=== PATIENT | female | born 1950 | race Hispanic/Latino ===

== ENCOUNTER 2019-02-07 15:29 | Inpatient (IN) | payer OTHER ==
[~2019-02-07] VITALS: Ht 158.8 cm; Wt 95.7 kg
[2019-02-07 16:01] LABS: BASOPHILS % (AUTO) 0.5 % (0.0-5.0); HEMATOCRIT 31.2 % (36-48); MEAN CORPUSCULAR HEMOGLOBIN 28.3 pg (27.0-33.0); MEAN CORPUSCULAR VOLUME 85.9 fL (79-99); MONOCYTES % (AUTO) 7.7 % (3.0-13.0); NEUTROPHILS % (AUTO) 66.8 % (40.0-77.0); PLATELET COUNT (AUTO) 183 K/uL (130-400); RED BLOOD CELL COUNT(AUTO) 3.63 MIL/uL (4.00-5.50); RED CELL DISTRIBUTION WIDTH 13.9 % (11.0-15.5); WHITE BLOOD COUNT (AUTO) 4.7 K/uL (4.8-10.8)
[2019-02-07 16:13] LABS: INR 0.91 (0.85-1.15); PARTIAL THROMBOPLASTIN TIME 25.2 SEC (26.3-35.5); PROTHROMBIN TIME 9.6 SEC (9.6-11.6)
[2019-02-07 16:14] LABS: CREATININE 2.6 mg/dL (0.5-1.5); POTASSIUM 4.6 mmol/L (3.5-5.1)
[2019-02-07 16:26] LABS: ALBUMIN 2.4 g/dL (3.5-5.0); BILIRUBIN,TOTAL 0.2 mg/dL (0.2-1.0); TOTAL PROTEIN, SERUM 5.9 g/dL (6.0-8.3)
[2019-02-07] MEDS ORDERED: LABETALOL 20 MG/4 ML DISP.SYRIN IV ONE (16:56)
[2019-02-07] MEDS ORDERED: ASPIRIN 325 MG TABLET ONE (18:13)
[2019-02-07] MEDS ORDERED: SODIUM CHLORIDE 0.9% 1000ML 1,000 ML IV SCH (19:07)
[2019-02-07] MEDS ORDERED: LACTULOSE 20 GM/30 ML UDCUP PO PRN (19:15)
[2019-02-07] MEDS ORDERED: ACETAMINOPHEN 325 MG TAB PO PRN (19:15)
[2019-02-07] MEDS ORDERED: LABETALOL 20 MG/4 ML DISP.SYRIN IV PRN (19:15)
[2019-02-07 19:44] LABS: HEMOGLOBIN A1C 6.1 % (4.0-6.0)
[2019-02-07 19:56] LABS: BILIRUBIN,DIRECT 0.1 mg/dL (0.0-0.3)
[2019-02-07] MEDS ORDERED: HYDRALAZINE HCL 20 MG/ML VIAL ONE ×2 (20:17→22:33)
[2019-02-07] MEDS: INSULIN HUMULIN R 100 UNIT/ML 3ML SQ SCH (21:00)
[2019-02-07] MEDS: FAMOTIDINE 20MG TAB 20 MG TAB PO SCH (22:02)
[2019-02-07] MEDS: ATORVASTATIN CALCIUM 20 MG TABLET PO SCH (22:02)
[2019-02-07] MEDS: HEPARIN SODIUM 5000UNIT/ML 1ML VIAL SQ SCH (22:03)
[2019-02-07 22:24] VITALS: BP 220/75
[2019-02-07] MEDS: HYDRALAZINE HCL 20 MG/ML VIAL IV SCH (22:30)
--- NOTE | 2019-02-07 22:43 | NUR ---
Blood pressure Patient blood pressure high upon arrival to room 205. BP 220/75 HR 63 SPO2%99. CASUALTY UNDERWRITER notified, new orders of hydralazine received will carry out. supervisor [employer] made aware.
[2019-02-08] VITALS (9 sets, daily range): BP systolic 145–199; BP diastolic 44–74
[2019-02-08 04:55] LABS: BASOPHILS % (AUTO) 0.4 % (0.0-5.0); EOSINOPHILS % (AUTO) 1.3 % (0.0-8.0); HEMATOCRIT 30.5 % (36-48); LYMPHOCYTES % (AUTO) 12.2 % (21.0-51.0); MEAN CORPUSCULAR HEMOGLOBIN 28.9 pg (27.0-33.0); MEAN CORPUSCULAR HGB CONC 33.6 g/dL (32.0-36.0); MEAN CORPUSCULAR VOLUME 86.1 fL (79-99); MONOCYTES % (AUTO) 7.3 % (3.0-13.0); NEUTROPHILS % (AUTO) 78.8 % (40.0-77.0); NUCLEATED RED BLOOD CELLS 0.1 % (0.0-0.19); PLATELET COUNT (AUTO) 154 K/uL (130-400); RED BLOOD CELL COUNT(AUTO) 3.54 MIL/uL (4.00-5.50); RED CELL DISTRIBUTION WIDTH 13.8 % (11.0-15.5); WHITE BLOOD COUNT (AUTO) 6.2 K/uL (4.8-10.8)
[2019-02-08 05:06] LABS: CREATININE 2.3 mg/dL (0.5-1.5); POTASSIUM 5.3 mmol/L (3.5-5.1)
[2019-02-08] MEDS: INSULIN HUMULIN R 100 UNIT/ML 3ML SQ SCH ×4 (07:13→21:00)
[2019-02-08] MEDS: FAMOTIDINE 20MG TAB 20 MG TAB PO SCH ×2 (07:58→20:01)
[2019-02-08] MEDS: HEPARIN SODIUM 5000UNIT/ML 1ML VIAL SQ SCH ×2 (07:58→20:00)
[2019-02-08] MEDS: ASPIRIN 325 MG TABLET PO SCH (07:59)
--- NOTE | 2019-02-08 08:00 | NUR ---
ASSESSMENT PT IS AAOX3 DENIES CP DENIES SOB DENIES NV NO COMPLAINTS. NO VISIBLE SIGNS OF DISTRESS NOTED. SITTING UP IN BED FAMILY IS AT BEDSIDE. NO SLURRED SPEECH NO NEURO DEFICITS NOTED. DENIES HEADACHES. CALL LIGHT WITHIN REACH.
[2019-02-08] MEDS ORDERED: MONT10TA24 PO (08:14)
[2019-02-08] MEDS ORDERED: NAPR250T4 PO (08:14)
[2019-02-08] MEDS ORDERED: NIFE30TA98 PO (08:14)
[2019-02-08] MEDS ORDERED: CARB200T6 PO (08:14)
[2019-02-08] MEDS ORDERED: PRED5TAB PO (08:14)
[2019-02-08] MEDS ORDERED: METF-445 PO (08:14)
[2019-02-08] MEDS ORDERED: [UNRECOGNIZED DRUG - OTHER] PO (08:14)
[2019-02-08] MEDS ORDERED: PRAZ1CAP5 PO (08:14)
[2019-02-08] MEDS ORDERED: FURO40TA7 PO (08:14)
--- NOTE | 2019-02-08 12:30 | NUR ---
DR JACKELINE FREIRE SAW PATIENT, ORDERS RECEIVED
[2019-02-08] MEDS: NIFEDIPINE ER 30 MG TAB PO SCH (12:33)
[2019-02-08] MEDS: PREDNISONE 5 MG TABLET PO SCH (12:33)
[2019-02-08] MEDS: HYDRALAZINE HCL 20 MG/ML VIAL IV PRN (15:09)
--- NOTE | 2019-02-08 15:10 | NUR ---
ELEVATED BP DENIES CP DENIES HEADACHES DENIES NV. PRN HYDRALAZINE GIVEN.
[2019-02-08] MEDS: ACETAMINOPHEN 325 MG TAB PO PRN ×2 (16:31→19:53)
--- NOTE | 2019-02-08 16:57 | NUR ---
D/C PLAN CM spoke to pt and daughter regarding d/c planning. Pt is ind. and lives with daughter in [place]. States she was visiting. Denies having any DME. CM provided community resources packet. Plan to home. CM to f/u. Addendum: 02/08/19 at 1658 by JUSTUS TREVINO CM Amended: Links added.
[2019-02-08] MEDS: MONTELUKAST SODIUM 10 MG TAB PO SCH (20:00)
[2019-02-08] MEDS: ATORVASTATIN CALCIUM 20 MG TABLET PO SCH (20:01)
[2019-02-08] MEDS: HYDRALAZINE HCL 20 MG/ML VIAL IV SCH (22:30)
[2019-02-09] VITALS (8 sets, daily range): BP systolic 141–198; BP diastolic 56–80
[2019-02-09] MEDS: HYDRALAZINE HCL 20 MG/ML VIAL IV PRN ×2 (00:55→12:53)
[2019-02-09] MEDS: ONDANSETRON HCL 4 MG/2 ML VIAL IV PRN ×2 (02:56→09:48)
--- NOTE | 2019-02-09 03:26 | NUR ---
pT. C/O NAUSEA AND VOMITING.PRN ZOFRAN IV GIVEN WILL CONTINUE TO MONITOR PT.
[2019-02-09 04:47] LABS: MEAN CORPUSCULAR HEMOGLOBIN 28.3 pg (27.0-33.0); MEAN CORPUSCULAR HGB CONC 32.9 g/dL (32.0-36.0); NUCLEATED RED BLOOD CELLS 0.1 % (0.0-0.19); PLATELET COUNT (AUTO) 175 K/uL (130-400); RED BLOOD CELL COUNT(AUTO) 3.49 MIL/uL (4.00-5.50); RED CELL DISTRIBUTION WIDTH 14.1 % (11.0-15.5); WHITE BLOOD COUNT (AUTO) 5.2 K/uL (4.8-10.8)
[2019-02-09 04:58] LABS: CREATININE 2.5 mg/dL (0.5-1.5); MAGNESIUM 1.9 mg/dL (1.80-2.40); POTASSIUM 4.6 mmol/L (3.5-5.1)
[2019-02-09 06:23] LABS: BAND NEUTROPHILS % (MANUAL) 2 % (0-2); LYMPHOCYTES % (MANUAL) 13 % (22-44); MONOCYTES % (MANUAL) 6 % (2-9); REACTIVE LYMPHOCYTES 2 % (0-0); SEGMENTED NEUTROPHILS % 77 % (40-70)
[2019-02-09 06:24] LABS: MAN.DIFF COMMENT-IMPRESSION MANUAL DIFFERENTIAL; PLATELET MORPHOLOGY COMMENT ADEQUATE
[2019-02-09] MEDS: INSULIN HUMULIN R 100 UNIT/ML 3ML SQ SCH ×5 (06:34→21:00)
[2019-02-09] MEDS: HEPARIN SODIUM 5000UNIT/ML 1ML VIAL SQ SCH ×2 (06:45→20:39)
--- NOTE | 2019-02-09 07:40 | NUR ---
Bedside report given to incoming NOD using SBAR,no episodes of vomiting remainder of the shift noted.
[2019-02-09] MEDS: ASPIRIN 325 MG TABLET PO SCH (09:00)
[2019-02-09] MEDS ORDERED: ASPIRIN 81 MG EC TAB ONE (09:29)
--- NOTE | 2019-02-09 09:30 | NUR ---
DYSPHAGIA EVAL COMPLETED. -S/S OF ASPIRATION. RECOMMEND REGULAR TEXTURE, THIN LIQUIDS; PILLS WHOLE WITH LIQUIDS. Addendum: 02/09/19 at 1229 by RADHA DUPREE, [facility] Amended: Links added.
[2019-02-09] MEDS: NIFEDIPINE ER 30 MG TAB PO SCH (09:37)
[2019-02-09] MEDS: FAMOTIDINE 20MG TAB 20 MG TAB PO SCH ×2 (09:37→20:35)
[2019-02-09] MEDS: PREDNISONE 5 MG TABLET PO SCH (09:38)
--- NOTE | 2019-02-09 09:45 | NUR ---
COGNITIVE EVAL COMPLETE. COGNITIVE-LINGUISTIC ABILITIES WITHIN FUNCTIONAL LIMITS. Pt AAOX3. Pt REQUESTS WANTS AND NEEDS INDEPENDENTLY. Pt INTELLIGIBLE AT 100% ACCURACY TO THE UNFAMILIAR LISTENER. Pt COMMUNICATING AT CONVERSATIONAL LEVEL WITH NO DEFICITS IDENTIFIED AT THIS TIME. Pt COMPLETED COGNITIVE-LINGUISTIC EVALUATION TARGETING: ORIENTATION, ATTENTION/CONCENTRATION, MEMORY (IMMEDIATE, SHORT-TERM AND LONG-TERM), PROBLEM SOLVING, LOGIC/REASONING/INFERENCE, THOUGHT ORGANIZATION, FUNCTIONAL MATH AND TELLING TIME. Pt ABLE TO COMPLETE TASKS WITH CORRECT AND TIMELY ANSWERS TO ALL SECTIONS. PLEASE NOTE Pt WITH SLIGHT LEFT FACIAL DROOP ATTRIBUTED TO [employer] IN 2008 REPORTED BY Pt. G-CODES SPOKEN LANGUAGE EXPRESSION: [id number] Addendum: 02/09/19 at 1256 by RADHA DUPREE [facility] Amended: Links added.
--- NOTE | 2019-02-09 11:25 | NUR ---
DR. Maura CARRANZA IN ROOM WITH PT. FOR CONSULT. PT.'S DAUGHTER AT BEDSIDE.
[2019-02-09] MEDS: MONTELUKAST SODIUM 10 MG TAB PO SCH (20:35)
[2019-02-09] MEDS: CLONIDINE HCL 0.1 MG TABLET PO SCH (20:36)
[2019-02-09] MEDS ORDERED: ATORVASTATIN CALCIUM 40 MG TABLET PO SCH (21:00)
[2019-02-10 03:10] VITALS: BP 140/55
[2019-02-10] MEDS: INSULIN HUMULIN R 100 UNIT/ML 3ML SQ SCH ×3 (06:52→16:30)
[2019-02-10 07:23] VITALS: BP 159/55
--- NOTE | 2019-02-10 07:38 | NUR ---
Endorsed care to incoming NOD using SBAR,pt resting well most of the night,no nausea and vomiting episode noted this shift.
[2019-02-10] MEDS ORDERED: ASPIRIN 81 MG EC TAB ONE (08:12)
[2019-02-10] MEDS: ASPIRIN 325 MG TABLET PO SCH (09:00)
[2019-02-10] MEDS: CLONIDINE HCL 0.1 MG TABLET PO SCH (09:51)
[2019-02-10] MEDS: FAMOTIDINE 20MG TAB 20 MG TAB PO SCH (09:51)
[2019-02-10] MEDS: NIFEDIPINE ER 30 MG TAB PO SCH (09:52)
[2019-02-10] MEDS: HEPARIN SODIUM 5000UNIT/ML 1ML VIAL SQ SCH (09:55)
--- NOTE | 2019-02-10 10:59 | NUR ---
DR. Maura CARRANZA IN ROOM SPEAKING WITH PT. AND PT.'S DAUGHTER AT BEDSIDE RE:EEG FINDINGS.
[2019-02-10 11:28] VITALS: BP 163/63
[2019-02-10] MEDS ORDERED: ATOR40TA69 PO (12:56)
[2019-02-10] MEDS ORDERED: ASPI-1012 PO (12:56)
[2019-02-10] MEDS ORDERED: CLON.1 PO (12:56)
[2019-02-10] MEDS ORDERED: NIFE60TA71 PO (12:56)
--- NOTE | 2019-02-10 14:04 | NUR ---
DR. HINSON IN ROOM SPEAKING WITH PT. AND PT.'S DAUGHTER AT BEDSIDE RE:DISCHARGE DISPOSITION. QUESTIONS ANSWERED BY DR. HINSON.
--- NOTE | 2019-02-10 15:50 | NUR ---
HL REMOVED, CATHETER INTACT. DISCHARGE INSTRUCTIONS GIVEN TO PT. AND DAUGHTER AT BEDSIDE; VERBALIZED MUTUAL UNDERSTANDING.
[2019-02-11] MEDS ORDERED: NIFEDIPINE ER 30 MG TAB PO SCH (09:00)
== END 2019-02-10 17:25 | disposition home or self-care (01) | DRG 69 ==
LOC: EDH 15:29 → EDHIP 15:30 → 2AH 21:26
PROVIDERS: ADMIT Hospitalist; ATTEND Hospitalist
DX: G45.9 Transient cerebral ischemic attack, unspecified (principal); E44.0 Moderate protein-calorie malnutrition; N18.4 Chronic kidney disease, stage 4 (severe); E11.22 Type 2 diabetes mellitus with diabetic chronic kidney disease; F17.200 Nicotine dependence, unspecified, uncomplicated; I12.9 Hypertensive chronic kidney disease with stage 1 through stage 4 chronic kidney disease, or unspecified chronic kidney disease; R29.701 NIHSS score 1; D64.9 Anemia, unspecified; I16.0 Hypertensive urgency; E78.00 Pure hypercholesterolemia, unspecified; E78.5 Hyperlipidemia, unspecified; Z79.899 Other long term (current) drug therapy; Z98.51 Tubal ligation status; Z68.38 Body mass index [BMI] 38.0-38.9, adult
CPT/HCPCS: 36415; 70450; 70544; 70547; 70551; 71045; 80048; 80053; 80061; 80156; 82248; 82550; 82948; 83036; 83735; 84484; 85025; 85610; 85730; 92522; 92610; 93005; 93306; 95819; 97039; G0378; J0360; J1644; J2405; J7512

== ENCOUNTER 2019-03-07 20:09 | Inpatient (IN) | payer OTHER ==
[~2019-03-07] VITALS: Ht 160 cm; Wt 100.2 kg
[~2019-03-07 20:09] MED LIST: ASPI-1012 PO; ATOR40TA69 PO; CARB200T6 PO; CLON0.1T2 PO; MONT10TA24 PO; NIFE60TA71 PO
[2019-03-07 20:38] LABS: BASOPHILS % (AUTO) 0.8 % (0.0-5.0); EOSINOPHILS % (AUTO) 2.5 % (0.0-8.0); HEMATOCRIT 22.5 % (36-48); LYMPHOCYTES % (AUTO) 16.9 % (21.0-51.0); MEAN CORPUSCULAR HEMOGLOBIN 28.4 pg (27.0-33.0); MEAN CORPUSCULAR HGB CONC 31.4 g/dL (32.0-36.0); MEAN CORPUSCULAR VOLUME 90.4 fL (79-99); MONOCYTES % (AUTO) 8.3 % (3.0-13.0); NEUTROPHILS % (AUTO) 71.5 % (40.0-77.0); NUCLEATED RED BLOOD CELLS 0.7 % (0.0-0.19); PLATELET COUNT (AUTO) 259 K/uL (130-400); RED BLOOD CELL COUNT(AUTO) 2.49 MIL/uL (4.00-5.50); WHITE BLOOD COUNT (AUTO) 6.1 K/uL (4.8-10.8)
[2019-03-07 20:45] LABS: CREATININE 2.3 mg/dL (0.5-1.5); POTASSIUM 4.9 mmol/L (3.5-5.1)
[2019-03-07 20:49] LABS: ALBUMIN 2.5 g/dL (3.5-5.0); BILIRUBIN,TOTAL 0.2 mg/dL (0.2-1.0); TOTAL PROTEIN, SERUM 6.1 g/dL (6.0-8.3)
[2019-03-07 21:06] LABS: B-TYPE NATRIURETIC PEPTIDE 154 pg/mL (0-100)
[2019-03-07] MEDS ORDERED: FUROSEMIDE 10 MG/ML 2ML VIAL ONE (21:06)
[2019-03-07] MEDS ORDERED: FUROSEMIDE 10 MG/ML 4ML VIAL ONE (21:06)
[2019-03-07] MEDS ORDERED: NITROGLYCERIN 1GM/1 INCH PACKET TD ONE (21:07)
[2019-03-07] MEDS ORDERED: METOPROLOL TARTRATE 1 MG/ML 5ML VIAL IV ONE (21:07)
[2019-03-07] MEDS ORDERED: CLONIDINE HCL 0.1 MG TABLET ONE (22:09)
[2019-03-07 22:24] LABS: APPEARANCE,URINE Clear (CLEAR); BILIRUBIN,URINE Negative (NEGATIVE); COLOR,URINE Yellow (YELLOW); GLUCOSE, URINE (UA) 250 mg/dL (NEGATIVE); KETONES,URINE Negative (NEGATIVE); LEUKOCYTE ESTERASE ,URINE Small (NEGATIVE); NITRATE,URINE Negative (NEGATIVE); OCCULT BLOOD,URINE Negative (NEGATIVE); PH,URINE 6.5 (5.0-8.0); PROTEIN,URINE >=1000 mg/dL (NEGATIVE); UROBILINOGEN,URINE 0.2 mg/dL (0.2-1.0)
[2019-03-07 22:43] LABS: BACTERIA,URINE None Seen /HPF (None Seen); MUCUS,URINE None Seen LPF (None Seen); SQUAMOUS EPITHELIAL CELL,UR None Seen /HPF (0-2)
[2019-03-07] MEDS ORDERED: PANTOPRAZOLE 40 MG/VIAL IVP SCH (23:15)
[2019-03-07] MEDS ORDERED: HYDRALAZINE HCL 20 MG/ML VIAL ONE (23:36)
[2019-03-08] MEDS ORDERED: KETOROLAC TROMETHAMINE 15MG/ML IV PRN
[2019-03-08 03:00] VITALS: BP 159/70
[2019-03-08 05:46] LABS: BASOPHILS % (AUTO) 0.6 % (0.0-5.0); LYMPHOCYTES % (AUTO) 15.7 % (21.0-51.0); MEAN CORPUSCULAR HEMOGLOBIN 27.9 pg (27.0-33.0); MEAN CORPUSCULAR HGB CONC 30.9 g/dL (32.0-36.0); MEAN CORPUSCULAR VOLUME 90.2 fL (79-99); MONOCYTES % (AUTO) 10.3 % (3.0-13.0); NEUTROPHILS % (AUTO) 71.4 % (40.0-77.0); NUCLEATED RED BLOOD CELLS 0.7 % (0.0-0.19); PLATELET COUNT (AUTO) 211 K/uL (130-400); RED BLOOD CELL COUNT(AUTO) 2.17 MIL/uL (4.00-5.50); RED CELL DISTRIBUTION WIDTH 16.9 % (11.0-15.5); WHITE BLOOD COUNT (AUTO) 6.1 K/uL (4.8-10.8)
[2019-03-08 05:48] LABS: HEMATOCRIT 19.6 % (36-48)
[2019-03-08 06:08] LABS: ALBUMIN 2.1 g/dL (3.5-5.0); BILIRUBIN,TOTAL 0.1 mg/dL (0.2-1.0); CREATININE 2.4 mg/dL (0.5-1.5); MAGNESIUM 1.8 mg/dL (1.80-2.40); POTASSIUM 5.1 mmol/L (3.5-5.1); TOTAL PROTEIN, SERUM 5.3 g/dL (6.0-8.3)
[2019-03-08 08:02] VITALS: BP 146/66
[2019-03-08] MEDS: CLONIDINE HCL 0.1 MG TABLET PO SCH ×2 (09:26→20:52)
[2019-03-08] MEDS: METOPROLOL TARTRATE 25 MG TAB PO SCH ×2 (09:26→20:53)
[2019-03-08 11:54] VITALS: BP 154/74
[2019-03-08 15:39] VITALS: BP 162/67
--- NOTE | 2019-03-08 15:41 | NUR ---
cm note met with patient and daughter LAKEISHA, pt resides at home with daughter, independent with adls and ambulation. no dme. states dc plan is back to home at time of dc. provided pt and angelo list of low income clinics in the area. and rx assist coupons, pt and daughter states they will followup with clinics. Addendum: 03/08/19 at 1552 by WALTER POWER CM Amended: Links added.
[2019-03-08 16:56] LABS: % IRON SATURATION 25.7 % (22-44)
[2019-03-08 17:14] LABS: HEMATOCRIT 24.2 % (36-48)
[2019-03-08 17:54] VITALS: BP 157/61
--- NOTE | 2019-03-08 19:23 | NUR ---
SBAR REPORT HANDED TO JOVITA ARANA. PATIENT WAS TRANSFUSED 1 UNIT OF PRBC TODAY. RECHECK HH: 7.6/24.2 DR. HATFIELD ORDERED FOR PATIENT TO BE SCHEDULED AND CONSENTED FOR EGD WITH [facility] TOMORROW. DR. MENDOZA WAS PAGED FOR NEW CONSULT AND IS PENDING TO CALL BACK. PATIENT WILL BE NPO AFTER 10PM ORDERED BY GI.
[2019-03-08 20:05] VITALS: BP 187/66
[2019-03-08] MEDS: PANTOPRAZOLE 40 MG/VIAL IVP SCH (20:53)
[2019-03-08] MEDS: SODIUM POLYSTYRENE SULFONATE 15 GM/60 ML ML PO SCH (20:54)
[2019-03-09] VITALS (25 sets, daily range): BP systolic 122–205; BP diastolic 49–82
[2019-03-09] MEDS: HYDRALAZINE HCL 20 MG/ML VIAL IV PRN ×3 (01:40→13:20)
[2019-03-09 04:36] LABS: CREATININE 2.5 mg/dL (0.5-1.5); POTASSIUM 4.8 mmol/L (3.5-5.1)
[2019-03-09 04:44] LABS: HEMATOCRIT 24.6 % (36-48); MEAN CORPUSCULAR HEMOGLOBIN 28.7 pg (27.0-33.0); MEAN CORPUSCULAR HGB CONC 31.3 g/dL (32.0-36.0); MEAN CORPUSCULAR VOLUME 91.6 fL (79-99); NUCLEATED RED BLOOD CELLS 0.1 % (0.0-0.19); PLATELET COUNT (AUTO) 179 K/uL (130-400); RED BLOOD CELL COUNT(AUTO) 2.68 MIL/uL (4.00-5.50); RED CELL DISTRIBUTION WIDTH 16.2 % (11.0-15.5); WHITE BLOOD COUNT (AUTO) 5.8 K/uL (4.8-10.8)
[2019-03-09 04:45] LABS: LYMPHOCYTES % (MANUAL) 24 % (22-44); MAN.DIFF COMMENT-IMPRESSION MANUAL DIFFERENTIAL; PLATELET MORPHOLOGY COMMENT ADEQUATE; SEGMENTED NEUTROPHILS % 76 % (40-70)
[2019-03-09 05:03] LABS: INR 0.96 (0.85-1.15); PARTIAL THROMBOPLASTIN TIME 25.9 SEC (26.3-35.5); PROTHROMBIN TIME 10.1 SEC (9.6-11.6)
[2019-03-09] MEDS ORDERED: PANTOPRAZOLE SODIUM 40 MG TABLET.DR PO SCH (07:30)
[2019-03-09] MEDS: METOPROLOL TARTRATE 25 MG TAB PO SCH (08:53)
[2019-03-09] MEDS: CLONIDINE HCL 0.1 MG TABLET PO SCH ×2 (08:54→21:28)
[2019-03-09] MEDS: PANTOPRAZOLE 40 MG/VIAL IVP SCH ×2 (08:54→21:27)
[2019-03-09] MEDS: ONDANSETRON HCL 4 MG/2 ML VIAL IV PRN ×2 (11:32→14:42)
[2019-03-09] MEDS ORDERED: FUROSEMIDE 40 MG TABLET PO SCH (11:45)
[2019-03-09] MEDS ORDERED: PROPOFOL 10 MG/ML 20ML VIAL IV ONE (11:52)
[2019-03-09] MEDS ORDERED: HYDROCHLOROTHIAZIDE 25 MG TABLET PO SCH (14:45)
[2019-03-09] MEDS ORDERED: LABETALOL HCL 200 MG TABLET PO SCH (14:45)
[2019-03-09 15:31] LABS: PROTEIN,URINE RANDOM 869.9 mg/dL (0-11.9)
[2019-03-09] MEDS: FUROSEMIDE 40 MG TABLET PO SCH (17:20)
[2019-03-09] MEDS ORDERED: LABETALOL HCL 200 MG TABLET ONE (19:27)
[2019-03-09] MEDS: SODIUM POLYSTYRENE SULFONATE 15 GM/60 ML ML PO SCH (20:30)
[2019-03-09] MEDS ORDERED: EPOETIN ALFA 10,000 UNIT/ML VIAL SQ ONE (21:00)
[2019-03-09] MEDS: LABETALOL HCL 200 MG TABLET PO SCH (21:29)
[2019-03-10 03:19] VITALS: BP 146/49
[2019-03-10] MEDS: LABETALOL HCL 200 MG TABLET PO SCH ×3 (06:04→21:52)
[2019-03-10 07:00] VITALS: BP 155/59
[2019-03-10 08:19] LABS: BASOPHILS % (AUTO) 0.7 % (0.0-5.0); EOSINOPHILS % (AUTO) 1.2 % (0.0-8.0); HEMATOCRIT 23.3 % (36-48); LYMPHOCYTES % (AUTO) 13.5 % (21.0-51.0); MEAN CORPUSCULAR HEMOGLOBIN 27.9 pg (27.0-33.0); MEAN CORPUSCULAR HGB CONC 30.8 g/dL (32.0-36.0); MEAN CORPUSCULAR VOLUME 90.7 fL (79-99); NEUTROPHILS % (AUTO) 74.6 % (40.0-77.0); NUCLEATED RED BLOOD CELLS 0.1 % (0.0-0.19); PLATELET COUNT (AUTO) 162 K/uL (130-400); RED BLOOD CELL COUNT(AUTO) 2.57 MIL/uL (4.00-5.50); RED CELL DISTRIBUTION WIDTH 16.1 % (11.0-15.5); WHITE BLOOD COUNT (AUTO) 4.8 K/uL (4.8-10.8)
[2019-03-10 08:25] LABS: POTASSIUM 4.3 mmol/L (3.5-5.1)
[2019-03-10 08:28] LABS: MAGNESIUM 1.7 mg/dL (1.80-2.40); PHOSPHORUS 6.1 mg/dL (2.5-4.9)
[2019-03-10] MEDS: FUROSEMIDE 40 MG TABLET PO SCH ×2 (10:12→16:52)
[2019-03-10] MEDS: HYDROCHLOROTHIAZIDE 25 MG TABLET PO SCH (10:12)
[2019-03-10] MEDS: PANTOPRAZOLE 40 MG/VIAL IVP SCH (10:13)
[2019-03-10] MEDS: CLONIDINE HCL 0.1 MG TABLET PO SCH ×2 (10:13→20:29)
[2019-03-10 11:00] VITALS: BP 146/56
[2019-03-10 15:00] VITALS: BP 148/57
[2019-03-10 19:00] VITALS: BP 152/54
[2019-03-10] MEDS: PANTOPRAZOLE SODIUM 40 MG TABLET.DR PO SCH (20:29)
[2019-03-10 23:43] VITALS: BP 166/60
[2019-03-11 04:00] VITALS: BP 162/50
[2019-03-11] MEDS: LABETALOL HCL 200 MG TABLET PO SCH (05:19)
--- NOTE | 2019-03-11 07:06 | NUR ---
Bedside report guven toincoming NOD using SBAR,pt. resting well for the most part of the shift.
--- NOTE | 2019-03-11 07:30 | NUR ---
ASSESSMENT PT IS RESTING IN BED, DENIES CP DENIES SOB DENIES NV NO COMPLAINTS. FAMILY IS AT BEDSIDE, CALL LIGHT WITHIN REACH.
[2019-03-11 07:56] VITALS: BP 163/43
[2019-03-11] MEDS: FUROSEMIDE 40 MG TABLET PO SCH (07:57)
[2019-03-11] MEDS: HYDROCHLOROTHIAZIDE 25 MG TABLET PO SCH (07:58)
[2019-03-11] MEDS: PANTOPRAZOLE SODIUM 40 MG TABLET.DR PO SCH (07:58)
[2019-03-11] MEDS: CLONIDINE HCL 0.1 MG TABLET PO SCH (07:58)
[2019-03-11 10:01] LABS: BASOPHILS % (AUTO) 3.9 % (0.0-5.0); EOSINOPHILS % (AUTO) 2.3 % (0.0-8.0); HEMATOCRIT 22.8 % (36-48); LYMPHOCYTES % (AUTO) 12.1 % (21.0-51.0); MEAN CORPUSCULAR HEMOGLOBIN 28.3 pg (27.0-33.0); MEAN CORPUSCULAR HGB CONC 31.6 g/dL (32.0-36.0); MEAN CORPUSCULAR VOLUME 89.4 fL (79-99); MONOCYTES % (AUTO) 10.7 % (3.0-13.0); NUCLEATED RED BLOOD CELLS 0.2 % (0.0-0.19); PLATELET COUNT (AUTO) 146 K/uL (130-400); RED BLOOD CELL COUNT(AUTO) 2.56 MIL/uL (4.00-5.50); RED CELL DISTRIBUTION WIDTH 15.3 % (11.0-15.5)
[2019-03-11 10:19] LABS: ALBUMIN 2.3 g/dL (3.5-5.0); BILIRUBIN,TOTAL 0.2 mg/dL (0.2-1.0); CREATININE 3.2 mg/dL (0.5-1.5); POTASSIUM 4.2 mmol/L (3.5-5.1); TOTAL PROTEIN, SERUM 5.3 g/dL (6.0-8.3)
[2019-03-11] MEDS ORDERED: FURO40TA7 PO (11:20)
[2019-03-11 11:44] VITALS: BP 159/67
--- NOTE | 2019-03-11 13:22 | NUR ---
DISCHARGE MDs ALL CLEARED FOR DC HOME. PT AND FAMILY VERBALIZE DC INSTRUCTION UNDERSTANDING AGREE TO TAKE MEDICATIONS ORDERED AGREE TO FOLLOW UP WITH PRIMARY MD AND IF SHE DOESNT HAVE ONE THEY WILL LOOK FOR ONE. ALL QUESTIONS ANSWERED PIV REMOVED CATH TIP INTACT TELE PACK REMOVED. ALL BELONGINGS GATHERED BY PATIENT AND FAMILY, AWAITING RIDE.
--- NOTE | 2019-03-11 14:00 | NUR ---
DOWN TO VEHICLE VIA WC WITH NURSE AIDE AND FAMILY
== END 2019-03-11 13:55 | disposition home or self-care (01) | DRG 377 ==
LOC: EDH 20:09 → EDHIP 20:10 → 2DH 03-08 02:24
PROVIDERS: ADMIT Internal Medicine; ATTEND Internal Medicine
PROC: 0DJ08ZZ Inspection of Upper Intestinal Tract, Via Natural or Artificial Opening Endoscopic (ICD-10-PCS; principal; 2019-03-09)
PROC: 30233N1 Transfusion of Nonautologous Red Blood Cells into Peripheral Vein, Percutaneous Approach (ICD-10-PCS; 2019-03-09)
DX: K31.811 Angiodysplasia of stomach and duodenum with bleeding (principal); E43 Unspecified severe protein-calorie malnutrition; N17.9 Acute kidney failure, unspecified; D62 Acute posthemorrhagic anemia; J81.1 Chronic pulmonary edema; N18.4 Chronic kidney disease, stage 4 (severe); E87.70 Fluid overload, unspecified; I16.0 Hypertensive urgency; E78.00 Pure hypercholesterolemia, unspecified; I12.9 Hypertensive chronic kidney disease with stage 1 through stage 4 chronic kidney disease, or unspecified chronic kidney disease; E11.22 Type 2 diabetes mellitus with diabetic chronic kidney disease; E78.5 Hyperlipidemia, unspecified; H91.90 Unspecified hearing loss, unspecified ear; K31.89 Other diseases of stomach and duodenum; D50.9 Iron deficiency anemia, unspecified; E66.9 Obesity, unspecified; Z68.39 Body mass index [BMI] 39.0-39.9, adult; Z90.710 Acquired absence of both cervix and uterus; Z83.3 Family history of diabetes mellitus; Z82.49 Family history of ischemic heart disease and other diseases of the circulatory system
CPT/HCPCS: 36415; 36430; 43235; 43239; 70450; 71045; 76770; 80048; 80053; 80061; 81001; 82270; 82306; 82550; 82570; 82948; 83540; 83550; 83605; 83735; 83880; 84100; 84132; 84156; 84484; 85014; 85018; 85025; 85610; 85730; 86850; 86900; 86901; 86922; 87040; 87804; 93005; 99291; A4606; C9113; G0378; J0360; J0885; J1940; J2405; J2704; J3490; P9016